=== PATIENT | male | born 1975 | race Caucasian/White ===

== ENCOUNTER 2024-12-25 04:30 | Emergency (ER) | payer SELFPAY ==
[2024-12-25 04:35] VITALS: BP 206/124; PULSE 78; RESP 18; TEMP 36.7; O2SAT 97; BMI 20.3
--- NOTE | 2024-12-25 05:21 | W.ED.SEIZURE ---
Documented by User: Rajan Araujo MD 12/25/24 05:42 HPI - Seizure General: Chief Complaint: Seizure Stated Complaint: Seizure Time Seen by Provider: 12/25/24 04:42 History of Present Illness: HPI Narrative: 49-year-old male, Cecilio Branch, picked up from a truck stop in [place], [place]. Patient reports a history of stress-induced seizures and believes he might have had one tonight. Unable to elaborate due to fatigue and hoarse voice. States he is always in pain. Denies acute focal pain but appears chronically affected by prior lower-extremity trauma; gait status not assessed. Has a urostomy but reports normal bowel movements. Complains of chronic insomnia and requests a dark, quiet room to sleep. Reports thirst and asks for blankets. No clear description of current seizure symptoms (no witnessed convulsions, tongue bite, incontinence, or postictal confusion documented). Triage noted very high blood pressure, suggesting possible uncontrolled hypertension; patient indicates he previously had blood-pressure medication but may have run out. No further review of systems obtained. Seizure History: Yes Related Data Home Medications ?Medication ?Instructions ?Recorded ?Confirmed amoxicillin 875 mg-potassium 1 tab PO BID x5days 12/25/24 12/25/24 clavulanate 125 mg tablet capsaicin 0.075 % topical cream 1 applic topical TID 12/25/24 12/25/24 (Arthritis Pain Relief (capsaicin)) lisinopril 20 mg tablet 20 mg PO DAILY 12/25/24 12/25/24 ondansetron 4 mg disintegrating 4 mg PO Q4H PRN Nausea 12/25/24 12/25/24 tablet scopolamine base 1 mg over 3 days 1 patch transdermal .Q3D 12/25/24 12/25/24 transdermal patch Allergies Allergy/AdvReac Type Severity Reaction Status Date / Time No Known Allergies Allergy Unverified 12/25/24 07:52 Physical Exam Const: COMMON NORMALS: no acute distress, patient oriented x3 and alert OTHER: No apparent distress but appears somnolent and wants to sleep. HENMT: COMMON NORMALS: normocephalic and atraumatic HEAD & SCALP: normocephalic and atraumatic Eye: COMMON NORMALS: Equal, round and reactive pupils present, EOMs intact bilaterally and no scleral icterus PUPIL: Yes Equal, round and reactive pupils present Resp: COMMON NORMALS: normal respiratory effort and No retractions Cardio: COMMON NORMALS: regular rate, regular rhythm and No murmurs present (Cardio) RATE: regular rate RHYTHM: regular rhythm GI: COMMON NORMALS: Normal to inspection, nondistended, normoactive bowel sounds present, Soft to palpation and non-tender PALPATION: Yes Soft to palpation : OTHER: Urostomy in right lower quadrant of the abdomen appears to be functioning properly with no surrounding erythema and ostomy bag well adhered to the skin. Extremity: NARRATIVE EXTREMITY EXAM: Remote injuries to the left lower extremity with surgical scars and mild edema of the foot and lower leg. Neuro: COMMON NORMALS: patient oriented x3 SENSORIUM/ORIENTATION: Yes alert Psych: OTHER: No SI or HI. No active hallucinations or delusions. Skin: COMMON NORMALS: no rashes or lesions noted GENERAL SKIN EXAM: no rashes or lesions noted Course Vital Signs: Vital signs: Vital Signs Temperature 98.1 F 12/25/24 04:35 Pulse Rate 88 12/25/24 08:52 Respiratory Rate 18 12/25/24 04:35 Blood Pressure 189/105 12/25/24 08:52 Pulse Oximetry 99 12/25/24 08:52 Oxygen Delivery Me thod Room Air 12/25/24 06:14 MDM - Seizure MDM Narrative Medical decision making narrative: Patient arrives hypertensive but otherwise hemodynamically stable. He complains of pain all over and just wants to sleep. He has had no seizure-like activity while here in the emergency department. Given his hypertension, basic labs will be ordered to assess for endorgan damage. Pertinent details of the case were shared with the oncoming emergency physician who will help facilitate ultimate disposition once labs and EKG are resulted. He does not traditionally take antiepileptic medication and I feel that his description of stress-induced seizures may be indicative of pseudoseizure. Assuming he remains hemodynamically stable and responds to blood pressure medication and shows no evidence of endorgan damage, I feel he would likely be safe for discharge after workup is completed. Lab Data 12/25/24 06:20 12/25/24 06:20 Labs: Laboratory Results WBC 12.88 10^3/uL (3.29-11.43) H 12/25/24 06:20 RBC 4.88 10^6/uL (3.85-5.65) 12/25/24 06:20 Hgb 14.70 g/dL (11.27-16.99) 12/25/24 06:20 Hct 45.6 % (37-53) 12/25/24 06:20 MCV 93.4 fl (82-101) 12/25/24 06:20 MCH 30.1 pg (27-33) 12/25/24 06:20 MCHC 32.2 g/dL (30-55) 12/25/24 06:20 RDW 15.5 % (12.1-15.1) H 12/25/24 06:20 Plt Count 265 10^3/cmm (157-399) 12/25/24 06:20 MPV 8.7 fL (7.4-10.4) 12/25/24 06:20 Neut % (Auto) 86.5 % 12/25/24 06:20 Lymph % (Auto) 8.9 % 12/25/24 06:20 [place] % (Auto) 3.0 % 12/25/24 06:20 Eos % (Auto) 0.9 % 12/25/24 06:20 Baso % (Auto) 0.3 % 12/25/24 06:20 Neut # (Auto) 11.14 10^3/uL (1.8-7.7) H 12/25/24 06:20 Lymph # (Auto) 1.2 10^3/uL (0.8-4.8) 12/25/24 06:20 [place] # (Auto) 0.4 10^3/uL (0.2-0.9) 12/25/24 06:20 Eos # (Auto) 0.1 10^3/uL (0.0-0.8) 12/25/24 06:20 Baso # (Auto) 0.0 10^3/uL (0.0-0.1) 12/25/24 06:20 Nucleated RBC % (auto) 0 % 12/25/24 06:20 Nucleated RBCs # 0.0 /100WBC 12/25/24 06:20 Sodium 138 mmol/L (136-145) 12/25/24 06:20 Potassium 3.5 mmol/L (3.5-5.1) 12/25/24 06:20 Chloride 100 mmol/L (98-107) 12/25/24 06:20 Carbon Dioxide 22 mmol/L (22-29) 12/25/24 06:20 Anion Gap 19.5 (5-19) H 12/25/24 06:20 BUN 7 mg/dL (6-20) 12/25/24 06:20 Creatinine 0.7 mg/dL (0.7-1.2) 12/25/24 06:20 GFR Calculation 119.4 mL/min (90-130) 12/25/24 06:20 Glucose 107 mg/dL (65-115) 12/25/24 06:20 Calculated Osmolality 284 mOsm/kg (285-295) L 12/25/24 06:20 Lactic Acid 1.5 mmol/L (0.5-2.2) 12/25/24 06:20 Calcium 9.5 mg/dL (8.5-10.5) 12/25/24 06:20 Total Bilirubin 0.6 mg/dL (0.15-1.2) 12/25/24 06:20 AST 18 U/L (0-40) 12/25/24 06:20 ALT 16 U/L (0-41) 12/25/24 06:20 Alkaline Phosphatase 77 U/L (40-130) 12/25/24 06:20 Troponin T Baseline 14 ng/L (0-15) 12/25/24 06:20 Total Protein 7.6 g/dL (6.6-8.7) 12/25/24 06:20 Albumin 4.8 g/dL (3.5-5.2) 12/25/24 06:20 Globulin 2.8 g/dL (1.3-4.6) 12/25/24 06:20 EKG Data EKG 1: Interpretation: Time?0534?sinus rhythm with sinus arrhythmia, rate of 68, no ST segment elevation or depression, no T wave inversions, QTc = 387 Discharge Plan Discharge Patient Disposition: Home Clinical Impression: Generalized seizure, Hypertension, Atypical chest pain Condition: Stable Prescriptions: No Action lisinopril 20 mg tablet 20 mg PO DAILY capsaicin [Arthritis Pain Relief(capsaic)] 0.075 % cream 1 applic TOPICAL TID scopolamine base 1 mg over 3 days patch 3 day 1 patch transdermal .Q3D ondansetron 4 mg tablet,disintegrating 4 mg PO Q4H PRN (Reason: Nausea) amoxicillin-pot clavulanate 875-125 mg tablet 1 tab PO BID Discharge Orders: Discharge ED (Routine); Ordered 12/25/24 Ordered By: Kirk Serrano Discharge Diet: Usual diet Discharge Activity: Increase activity as tolerated Patient Instructions: Opioid Safety, Pain Management, Patient Portal & Qi Instructions Activity Restrictions/Additional Instructions: Thank you for choosing [facility] for your healthcare needs today. It is very important that you follow up as instructed or that you return to the Emergency Department should you have concerns or if your condition changes or worsens in any way. . You insisted on leaving prior to her completing her evaluation and treatment. Given this we cannot be sure exactly what your underlying problem was from the description of your history it sounds like you may have had a seizure. At the time you are discharged unfortunately your blood pressure was not well-controlled. You had declined to take some of the medications that we had recommended to control your blood pressure while you are in the emergency room. Recommend that you follow-up with your primary care doctor as soon as you are able you are welcome return to the emergency room for worsening symptoms. Print Language: Citizen Of [place] Sign Out Sign Out Data: Patient Sign Out occurred on 12/25/24 at 07:00. Patient's care was discussed, and care was transferred from Rajan Araujo MD to Kirk Serrano DO. 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 [employer] Documented by User: Kirk Serrano DO 12/25/24 09:05 HPI - Seizure General: Chief Complaint: Seizure Stated Complaint: Seizure Time Seen by Provider: 12/25/24 04:42 Related Data Home Medications ?Medication ?Instructions ?Recorded ?Confirmed amoxicillin 875 mg-potassium 1 tab PO BID x5days 12/25/24 12/25/24 clavulanate 125 mg tablet capsaicin 0.075 % topical cream 1 applic topical TID 12/25/24 12/25/24 (Arthritis Pain Relief (capsaicin)) lisinopril 20 mg tablet 20 mg PO DAILY 12/25/24 12/25/24 ondansetron 4 mg disintegrating 4 mg PO Q4H PRN Nausea 12/25/24 12/25/24 tablet scopolamine base 1 mg over 3 days 1 patch transdermal .Q3D 12/25/24 12/25/24 transdermal patch Allergies Allergy/AdvReac Type Severity Reaction Status Date / Time No Known Allergies Allergy Unverified 12/25/24 07:52 Course Vital Signs: Vital signs: Vital Signs Temperature 98.1 F 12/25/24 04:35 Pulse Rate 88 12/25/24 08:52 Respiratory Rate 18 12/25/24 04:35 Blood Pressure 189/105 12/25/24 08:52 Pulse Oximetry 99 12/25/24 08:52 Oxygen Delivery Me thod Room Air 12/25/24 06:14 MDM - Seizure MDM Narrative Medical decision making narrative: Patient arrives hypertensive but otherwise hemodynamically stable. He complains of pain all over and just wants to sleep. He has had no seizure-like activity while here in the emergency department. Given his hypertension, basic labs will be ordered to assess for endorgan damage. Pertinent details of the case were shared with the oncoming emergency physician who will help facilitate ultimate disposition once labs and EKG are resulted. He does not traditionally take antiepileptic medication and I feel that his description of stress-induced seizures may be indicative of pseudoseizure. Assuming he remains hemodynamically stable and responds to blood pressure medication and shows no evidence of endorgan damage, I feel he would likely be safe for discharge after workup is completed. Patient blood pressure not well-controlled at this point he is refusing his Eichenauer troches and demanding to leave. I discussed with him we had not fully completed a workup he expressed that he did not wish to stay for the remainder of it. We discharged home as per his expressed where she was advised he can return at any time. Suspect he may have had a seizure concerned about his ongoing blood pressure issues he said he will follow-up with his regular doctor with that. Lab Data 12/25/24 06:20 12/25/24 06:20 Labs: Laboratory Results WBC 12.88 10^3/uL (3.29-11.43) H 12/25/24 06:20 RBC 4.88 10^6/uL (3.85-5.65) 12/25/24 06:20 Hgb 14.70 g/dL (11.27-16.99) 12/25/24 06:20 Hct 45.6 % (37-53) 12/25/24 06:20 MCV 93.4 fl (82-101) 12/25/24 06:20 MCH 30.1 pg (27-33) 12/25/24 06:20 MCHC 32.2 g/dL (30-55) 12/25/24 06:20 RDW 15.5 % (12.1-15.1) H 12/25/24 06:20 Plt Count 265 10^3/cmm (157-399) 12/25/24 06:20 MPV 8.7 fL (7.4-10.4) 12/25/24 06:20 Neut % (Auto) 86.5 % 12/25/24 06:20 Lymph % (Auto) 8.9 % 12/25/24 06:20 [place] % (Auto) 3.0 % 12/25/24 06:20 Eos % (Auto) 0.9 % 12/25/24 06:20 Baso % (Auto) 0.3 % 12/25/24 06:20 Neut # (Auto) 11.14 10^3/uL (1.8-7.7) H 12/25/24 06:20 Lymph # (Auto) 1.2 10^3/uL (0.8-4.8) 12/25/24 06:20 [place] # (Auto) 0.4 10^3/uL (0.2-0.9) 12/25/24 06:20 Eos # (Auto) 0.1 10^3/uL (0.0-0.8) 12/25/24 06:20 Baso # (Auto) 0.0 10^3/uL (0.0-0.1) 12/25/24 06:20 Nucleated RBC % (auto) 0 % 12/25/24 06:20 Nucleated RBCs # 0.0 /100WBC 12/25/24 06:20 Sodium 138 mmol/L (136-145) 12/25/24 06:20 Potassium 3.5 mmol/L (3.5-5.1) 12/25/24 06:20 Chloride 100 mmol/L (98-107) 12/25/24 06:20 Carbon Dioxide 22 mmol/L (22-29) 12/25/24 06:20 Anion Gap 19.5 (5-19) H 12/25/24 06:20 BUN 7 mg/dL (6-20) 12/25/24 06:20 Creatinine 0.7 mg/dL (0.7-1.2) 12/25/24 06:20 GFR Calculation 119.4 mL/min (90-130) 12/25/24 06:20 Glucose 107 mg/dL (65-115) 12/25/24 06:20 Calculated Osmolality 284 mOsm/kg (285-295) L 12/25/24 06:20 Lactic Acid 1.5 mmol/L (0.5-2.2) 12/25/24 06:20 Calcium 9.5 mg/dL (8.5-10.5) 12/25/24 06:20 Total Bilirubin 0.6 mg/dL (0.15-1.2) 12/25/24 06:20 AST 18 U/L (0-40) 12/25/24 06:20 ALT 16 U/L (0-41) 12/25/24 06:20 Alkaline Phosphatase 77 U/L (40-130) 12/25/24 06:20 Troponin T Baseline 14 ng/L (0-15) 12/25/24 06:20 Total Protein 7.6 g/dL (6.6-8.7) 12/25/24 06:20 Albumin 4.8 g/dL (3.5-5.2) 12/25/24 06:20 Globulin 2.8 g/dL (1.3-4.6) 12/25/24 06:20 All radiology interpretation(s) finalized by discharge Discharge Plan Discharge Patient Disposition: Home Clinical Impression: Generalized seizure, Hypertension, Atypical chest pain Condition: Stable Prescriptions: No Action lisinopril 20 mg tablet 20 mg PO DAILY capsaicin [Arthritis Pain Relief(capsaic)] 0.075 % cream 1 applic TOPICAL TID scopolamine base 1 mg over 3 days patch 3 day 1 patch transdermal .Q3D ondansetron 4 mg tablet,disintegrating 4 mg PO Q4H PRN (Reason: Nausea) amoxicillin-pot clavulanate 875-125 mg tablet 1 tab PO BID Discharge Orders: Discharge ED (Routine); Ordered 12/25/24 Ordered By: Kirk Serrano Discharge Diet: Usual diet Discharge Activity: Increase activity as tolerated Patient Instructions: Opioid Safety, Pain Management, Patient Portal & Qi Instructions Activity Restrictions/Additional Instructions: Thank you for choosing [facility] for your healthcare needs today. It is very important that you follow up as instructed or that you return to the Emergency Department should you have concerns or if your condition changes or worsens in any way. . You insisted on leaving prior to her completing her evaluation and treatment. Given this we cannot be sure exactly what your underlying problem was from the description of your history it sounds like you may have had a seizure. At the time you are discharged unfortunately your blood pressure was not well-controlled. You had declined to take some of the medications that we had recommended to control your blood pressure while you are in the emergency room. Recommend that you follow-up with your primary care doctor as soon as you are able you are welcome return to the emergency room for worsening symptoms. Print Language: Citizen Of [place] Sign Out Sign Out Data: Patient Sign Out occurred on 12/25/24 at 07:00. Patient's care was discussed, and care was transferred from Rajan Araujo MD to Kirk Serrano DO. 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 Sean Wilkinson
--- NOTE | 2024-12-25 05:25 | ECG_ITS ---
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 Measurements Intervals [place] Rate: 68 P: 76 ID: [id number] QRS: 81 QRSD: 94 T: 79 QT: 369 QTc: 394 Interpretive Statements SINUS RHYTHM WITH SINUS ARRHYTHMIA No previous ECG available for comparison Electronically Signed On 12-26-2024 14:11:17 CDT by Mango Fernandes M.D. [email or web address]
[2024-12-25 06:14] VITALS: BP 213/122; PULSE 69; O2SAT 100
[2024-12-25 06:25] LABS: Hematocrit 45.6 % (37-53); Hemoglobin 14.70 g/dL (11.27-16.99); Mean Corpuscular HGB Conc 32.2 g/dL (30-55); Mean Corpuscular Hemoglobin 30.1 pg (27-33); Mean Corpuscular Volume 93.4 fl (82-101); Nucleated Red Blood Cells % 0 %; Platelet Count 265 10^3/cmm (157-399); Red Blood Count 4.88 10^6/uL (3.85-5.65); White Blood Count 12.88 10^3/uL (3.29-11.43)
[2024-12-25 06:43] LABS: Troponin(5th) Baseline 14 ng/L (0-15)
[2024-12-25 06:46] LABS: Alanine Aminotransferase 16 U/L (0-41); Albumin Level 4.8 g/dL (3.5-5.2); Alkaline Phosphatase 77 U/L (40-130); Anion Gap 19.5 (5-19); Aspartate Amino Transferase 18 U/L (0-40); Blood Urea Nitrogen 7 mg/dL (6-20); Calcium 9.5 mg/dL (8.5-10.5); Carbon Dioxide 22 mmol/L (22-29); Chloride 100 mmol/L (98-107); Creatinine Clr Calc Pharmacy 131.7421; Globulin 2.8 g/dL (1.3-4.6); Glucose 107 mg/dL (65-115); Osmolality Calculated 284 mOsm/kg (285-295); Potassium 3.5 mmol/L (3.5-5.1); Sodium 138 mmol/L (136-145); Total Protein 7.6 g/dL (6.6-8.7)
[2024-12-25 06:48] LABS: Lactic Sepsis W/Reflex 1.5 mmol/L (0.5-2.2)
[2024-12-25 07:18] VITALS: BP 199/102; PULSE 70; O2SAT 99
[2024-12-25 08:03] VITALS: BP 198/115; PULSE 78; O2SAT 98
[2024-12-25] MEDS: hyDRALAzine 20 mg/mL INJ 1 mL 10 MG IVP (08:03)
--- NOTE | 2024-12-25 08:51 | PC.NURSE ---
pt refusing 2hr Maggie bui at bedside and discussed discharge with patient. pt AOx4, stating he needs to get a friend to [place] and he needs to leave. pt refusing to stay, refused WC to ER WR.
[2024-12-25 08:52] VITALS: BP 189/105; PULSE 88; O2SAT 99
== END 2024-12-25 08:53 | disposition home or self-care (01) ==
PROVIDERS: Student in an Organized Health Care Education/Training Program; Emergency Provider Family Medicine
DX: G40.89 Other seizures (principal); R07.89 Other chest pain; I10 Essential (primary) hypertension
CPT/HCPCS: 80053; 83605; 84484; 85025; 93005; 96374; 99284; J0360; J9999